=== PATIENT | male | born 1945 | race Caucasian/White ===

== ENCOUNTER 2023-02-12 09:11 | Inpatient (IN) | payer MEDICARE ==
[~2023-02-12] VITALS: Ht 177.8 cm; Wt 109.8 kg
[2023-02-12] VITALS (15 sets, daily range): BP systolic 95–135; BP diastolic 48–91; PULSE 57–118; RESP 10–22; TEMP 97.8–98.6; O2SAT 94–99
[2023-02-12] MEDS ORDERED: OMEPRAZOLE40 MG PO (09:56)
[2023-02-12] MEDS ORDERED: LISINOPRIL10 MG PO (09:56)
[2023-02-12] MEDS ORDERED: ENOXAPARIN SODIUM INJ 100 MG/ML SYR SC STA (10:16)
[2023-02-12] MEDS ORDERED: ENOXAPARIN SODIUM INJ 100 MG/ML SYR SC ONE (10:34)
[2023-02-12] MEDS ORDERED: ONDANSETRON HCL INJ 2MG/ML 2ML 2 MG/ML VIAL IV PRN (11:45)
[2023-02-12] MEDS ORDERED: SODIUM CHLORIDE FLUSH 10 ML SYR INJ PRN (11:45)
[2023-02-12] MEDS ORDERED: ASPIRIN 81 MG CHEW TAB PO ONE (11:45)
[2023-02-12] MEDS ORDERED: CIALIS2.5 MG (12:07)
[2023-02-12] MEDS ORDERED: SIMETHICONE 80 MG CHEW PO PRN (13:00)
[2023-02-12] MEDS ORDERED: DOCUSATE SODIUM 100 MG CAP PO PRN (13:00)
[2023-02-12] MEDS ORDERED: ACETAMINOPHEN 325 MG TAB PO PRN (13:00)
[2023-02-12] MEDS ORDERED: MELATONIN 3 MG TAB PO PRN (13:00)
[2023-02-12] MEDS ORDERED: METOPROLOL TARTRATE INJ 1 MG/ML VIAL IV PRN (13:00)
[2023-02-12] MEDS: METOPROLOL SUCCINATE 25 MG TAB XL PO SCH (15:39)
[2023-02-12] MEDS: APIXABAN 5 MG TABLET PO SCH (17:20)
[2023-02-13] VITALS (19 sets, daily range): BP systolic 90–141; BP diastolic 58–114; PULSE 48–137; RESP 15–24; TEMP 97.7–99.2; O2SAT 93–100
[2023-02-13 05:55] LABS: BASOPHILS # (AUTO) 0.1 (0.0-0.1); BASOPHILS % 0.5 % (0.0-1.0); EOSINOPHILS # (AUTO) 0.4 (0.0-0.4); EOSINOPHILS % 3.6 % (0.0-6.0); HEMATOCRIT 43.6 % (38.2-49.6); HEMOGLOBIN 13.9 g/dL (14.0-18.0); LYMPHOCYTES # (AUTO) 2.9 (1.0-3.2); LYMPHOCYTES % 29.7 % (18.0-39.1); MEAN CORPUSCULAR HEMOGLOBIN 26.9 pg (28-32); MEAN CORPUSCULAR HGB CONC 31.9 g/dL (31-35); MEAN CORPUSCULAR VOLUME 84.5 fL (81-99); MONOCYTES # (AUTO) 0.8 (0.2-0.8); MONOCYTES % 7.7 % (4.4-11.3); NEUTROPHILS # (AUTO) 5.7 (2.1-6.9); NEUTROPHILS % 57.9 % (38.7-80.0); PLATELET COUNT 221 x10e3/uL (140-360); RED BLOOD COUNT 5.16 x10e6/uL (4.3-5.7); RED CELL DISTRIBUTION WIDTH 13.2 % (11.7-14.4)
[2023-02-13 06:16] LABS: ANION GAP 14.3 mmol/L (8-16); CALCIUM 9.4 mg/dL (8.4-10.2); CREATININE, SERUM 1.01 mg/dL (0.72-1.25); POTASSIUM 4.3 mmol/L (3.5-5.1)
[2023-02-13] MEDS: APIXABAN 5 MG TABLET PO SCH ×2 (08:06→16:23)
[2023-02-13] MEDS: METOPROLOL SUCCINATE 25 MG TAB XL PO SCH (08:07)
[2023-02-13] MEDS ORDERED: AMIODARONE HCL 150 MG/100 ML BAG IV ONE (14:45)
[2023-02-13] MEDS ORDERED: AMIODARONE HCL 100 ML IV ONE (15:00)
[2023-02-13] MEDS ORDERED: AMIODARONE 900MG 500 ML IV SCH ×2 (15:15→21:30)
[2023-02-13] MEDS: AMIODARONE HCL 200 MG TAB PO SCH ×2 (17:34→21:21)
[2023-02-14] VITALS (14 sets, daily range): BP systolic 106–138; BP diastolic 54–87; PULSE 38–128; RESP 13–22; TEMP 98–99; O2SAT 92–95
[2023-02-14] MEDS: AMIODARONE HCL 200 MG TAB PO SCH ×2 (05:17→14:01)
[2023-02-14 06:54] LABS: BASOPHILS % 0.4 % (0.0-1.0); EOSINOPHILS # (AUTO) 0.3 (0.0-0.4); EOSINOPHILS % 2.6 % (0.0-6.0); HEMATOCRIT 46.8 % (38.2-49.6); HEMOGLOBIN 15.6 g/dL (14.0-18.0); LYMPHOCYTES # (AUTO) 2.6 (1.0-3.2); LYMPHOCYTES % 27.7 % (18.0-39.1); MEAN CORPUSCULAR HEMOGLOBIN 27.8 pg (28-32); MEAN CORPUSCULAR HGB CONC 33.3 g/dL (31-35); MEAN CORPUSCULAR VOLUME 83.4 fL (81-99); MONOCYTES # (AUTO) 0.7 (0.2-0.8); MONOCYTES % 7.1 % (4.4-11.3); NEUTROPHILS # (AUTO) 5.8 (2.1-6.9); NEUTROPHILS % 61.6 % (38.7-80.0); PLATELET COUNT 213 x10e3/uL (140-360); RED BLOOD COUNT 5.61 x10e6/uL (4.3-5.7); RED CELL DISTRIBUTION WIDTH 13.3 % (11.7-14.4)
[2023-02-14 07:47] LABS: ANION GAP 15.1 mmol/L (8-16); CALCIUM 9.5 mg/dL (8.4-10.2); CREATININE, SERUM 1.01 mg/dL (0.72-1.25); POTASSIUM 4.1 mmol/L (3.5-5.1)
[2023-02-14] MEDS: APIXABAN 5 MG TABLET PO SCH ×2 (08:10→16:51)
[2023-02-14] MEDS: METOPROLOL SUCCINATE 25 MG TAB XL PO SCH (08:11)
[2023-02-14] MEDS ORDERED: ALPRAZOLAM 0.25 MG TAB PO PRN (10:15)
[2023-02-15 04:00] VITALS: BP 116/72; PULSE 51; RESP 19; TEMP 98.8; O2SAT 94
[2023-02-15 07:47] VITALS: BP 117/60; PULSE 64; RESP 18; TEMP 98; O2SAT 95
[2023-02-15] MEDS: METOPROLOL SUCCINATE 25 MG TAB XL PO SCH (08:10)
[2023-02-15] MEDS ORDERED: AMIODARONE HCL 200 MG TAB PO SCH (09:00)
[2023-02-15] MEDS: APIXABAN 5 MG TABLET PO SCH (09:02)
[2023-02-15 09:12] VITALS: BP 117/60; PULSE 64; RESP 18; TEMP 98; O2SAT 95
[2023-02-15 11:39] VITALS: BP 124/85; PULSE 59; RESP 13; O2SAT 95
[2023-02-15] MEDS ORDERED: METOPROLOL SUCC25 MG PO (14:17)
[2023-02-15] MEDS ORDERED: ELIQUIS5 MG PO (14:18)
[2023-02-15] MEDS ORDERED: AMIODARONE HCL200 MG PO (14:20)
[2023-02-15 15:01] VITALS: BP 106/72; PULSE 57; RESP 18; O2SAT 95
== END 2023-02-15 15:30 | disposition home or self-care (01) | DRG 310 ==
LOC: FSED 09:20 → ERHOLD 11:49 → ICU 13:37
PROVIDERS: ADMIT Internal Medicine; ATTEND Internal Medicine
PROC: 02HV33Z Insertion of Infusion Device into Superior Vena Cava, Percutaneous Approach (ICD-10-PCS; principal; 2023-02-14)
DX: I48.92 Unspecified atrial flutter (principal); E66.9 Obesity, unspecified; Z68.34 Body mass index [BMI] 34.0-34.9, adult; K21.9 Gastro-esophageal reflux disease without esophagitis; I10 Essential (primary) hypertension; R73.03 Prediabetes; H40.9 Unspecified glaucoma; Z20.822 Contact with and (suspected) exposure to COVID-19; Z85.46 Personal history of malignant neoplasm of prostate; Z90.49 Acquired absence of other specified parts of digestive tract; Z87.891 Personal history of nicotine dependence
CPT/HCPCS: 36415; 36569; 71045; 71046; 80048; 80053; 82550; 82553; 83880; 84443; 84484; 85025; 93005; 93306; 96372; 99284; J1650